=== PATIENT | male | born 1970 | race Caucasian/White ===

== ENCOUNTER 2016-03-29 21:36 | Emergency (ER) | payer MEDICAID ==
[~2016-03-29] VITALS: Ht 170.2 cm; Wt 68.2 kg
[~2016-03-29 21:36] MED LIST: LORA-441 PO
[2016-03-29 21:42] VITALS: Ht 170.2 cm; Wt 68.2 kg
--- NOTE | 2016-03-29 23:52 | ERD ---
ER Documentation Chief Complaint Date/Time DATE: 03/29/16 TIME: 23:51 Chief Complaint BIBA for chronic anxiety, does not have money for his Rx per pt. HPI There is a 46 mm Ativan was for chronic anxiety. Patient is in need of vomiting for his Rx. He denies any suicidal homicidal ideation. Patient has multiple visits. Upon reviewing medical records, patient has been multiple times in 2016. At this point is clinically stable for outpatient management. ROS All systems reviewed and are negative except as per history of present illness. Medications Home Meds Active Scripts Lorazepam* (Ativan*) 0.5 Mg Tablet, 0.5 MG PO Q8, #10 TAB Prov:TABATHA ZUNIGA 03/24/16 Discontinued Reported Medications Ibuprofen* (Ibuprofen*) 800 Mg Tab, 800 MG PO TID for HEADACHE, TAB 05/31/14 Glipizide* (Glipizide*) 5 Mg Tablet, 5 MG PO DAILY 04/27/14 Alprazolam* (Alprazolam*) 0.5 Mg Tablet, 0.5 MG PO TID 04/27/14 Lisinopril* (Lisinopril*) 10 Mg Tablet, 10 MG PO DAILY 04/27/14 Metformin* (Glucophage*) 500 Mg Tab, 500 MG PO BID 04/27/14 Discontinued Scripts Lorazepam* (Lorazepam*) 1 Mg Tablet, 1 MG PO Q8H Y for ANXIETY, #7 TAB Prov:GAYATRI COX PA-C 03/23/16 Ibuprofen* (Motrin*) 400 Mg Tab, 400 MG PO Q6H Y for PAIN AND OR ELEVATED TEMP, #30 TAB Prov:BHAVNA RAMACHANDRAN NP 03/20/16 Metoprolol Succinate* (Toprol XL*) 25 Mg Tab.sr.24h, 25 MG PO DAILY, #30 TAB Prov:OMAYRA FERRO PA-C 01/25/16 Metformin Hcl* (Metformin Hcl*) 850 Mg Tablet, 850 MG PO WITH BREAKFAST, #30 TAB Prov:OMAYRA FERRO PA-C 01/25/16 Carisoprodol* (Soma*) 350 Mg Tablet, 350 MG PO TID Y for MUSCLE SPASMS, #15 TAB Prov:OMAYRA FERRO PA-C 01/11/15 Hydrocodone Bit-Acetaminophen* ([place]*) 10-325 Mg Tablet, 1 TAB PO Q6 Y for PAIN , #7 TAB Prov:CLAUDIALeonidesOMAYRA PA-C 01/11/15 Ibuprofen* (Ibuprofen*) 800 Mg Tab, 800 MG PO Q6H Y for PAIN, #30 TAB Prov:KASIEDOLLYIsaias Elizabeth PRIETO 01/11/15 Allergies Allergies: Coded Allergies: No Known Allergy (Unverified , 03/23/16) PMhx/Soc History of Surgery: No Anesthesia Reaction: No Hx Neurological Disorder: No Hx Respiratory Disorders: No Hx Cardiac Disorders: Yes (htn) Hx Psychiatric Problems: No Hx Miscellaneous Medical Probl: Yes (dm , depression ) Hx Alcohol Use: Yes (daily ) Hx Substance Use: No Hx Tobacco Use: Yes Physical Exam Vitals Vital Signs Date Time Temp Pulse Resp B/P Pulse Ox O2 Delivery O2 Flow Rate FiO2 03/29/16 21:42 98.6 73 20 112/70 98 Physical Exam Const: [] Head: Atraumatic Eyes: Normal Conjunctiva ENT: Normal External Ears, Nose and Mouth. Neck: Full range of motion..~ No meningismus. Resp: Clear to auscultation bilaterally Cardio: Regular rate and rhythm, no murmurs Abd: Soft, non tender, non distended. Normal bowel sounds Skin: No petechiae or rashes Back: No midline or flank tenderness Ext: No cyanosis, or edema Neur: Awake and alert Psych: Normal Mood and Affect Procedures/MDM This is a patient who is at this point malingering. At this point is clinically stable. He will be offered Librium. He will be discharged home with a prescription for Librium. Follow-up with PCP. Return for worsening symptoms. No evidence of suicidal homicidal ideation. No evidence of psychosis. Departure Diagnosis: Primary Impression: Anxiety Additional Impression: Alcohol abuse Condition: Stable EMMA CORMIER Mar 29, 2016 23:52
[2016-03-29] MEDS ORDERED: CHLO25CA9 PO (23:53)
== END 2016-03-30 00:16 | disposition home or self-care (01) ==
LOC: FTE 21:36 → E/R 03-30 00:16
DX: F41.9 Anxiety disorder, unspecified (principal); I10 Essential (primary) hypertension; E11.9 Type 2 diabetes mellitus without complications; F17.210 Nicotine dependence, cigarettes, uncomplicated; F10.10 Alcohol abuse, uncomplicated; Z79.84 Long term (current) use of oral hypoglycemic drugs
CPT/HCPCS: 99283

== ENCOUNTER 2016-03-30 20:16 | Emergency (ER) | payer SELFPAY ==
[~2016-03-30] VITALS: Ht 175.3 cm; Wt 65.0 kg
[~2016-03-30 20:16] MED LIST changes: +CHLO25CA9 PO
[2016-03-30 20:31] VITALS: Ht 175.3 cm; Wt 65.0 kg
== END 2016-03-31 08:02 | disposition left against medical advice (07) ==
LOC: E/R 20:16
DX: Z53.21 Procedure and treatment not carried out due to patient leaving prior to being seen by health care provider (principal)

== ENCOUNTER 2016-04-13 22:00 | Emergency (ER) | payer MEDICAID ==
[~2016-04-13] VITALS: Ht 170.2 cm; Wt 78.0 kg
[2016-04-13 22:11] VITALS: Ht 170.2 cm; Wt 78.0 kg
[2016-04-13] MEDS ORDERED: METF500T4 PO (23:09)
[2016-04-13] MEDS ORDERED: LORA-441 PO (23:09)
[2016-04-13] MEDS ORDERED: LISI10TA2 PO (23:21)
[2016-04-13] MEDS ORDERED: METO25TA7 PO (23:21)
--- NOTE | 2016-04-13 23:25 | ERD ---
ER Documentation Chief Complaint Date/Time DATE: 04/13/16 TIME: 23:23 Chief Complaint Pt needs medication refill DM and Htn. HPI This is a 45-year-old male presents to the ER for medication refill for his diabetes, hypertension and anxiety. Patient states he is traveling tomorrow any this medication. He denies any chest pain or shortness of breath. Patient denies any suicidal ideations. ROS 12 point review of systems was done, all negative except per HPI. Medications Home Meds Active Scripts Lisinopril* (Lisinopril*) 10 Mg Tablet, 10 MG PO DAILY, #30 TAB Prov:EFRAIN,TABATHA C 04/13/16 Metoprolol Succinate* (Toprol XL*) 25 Mg Tab.sr.24h, 25 MG PO DAILY, #30 TAB Prov:TABATHA ZUNIGA 04/13/16 Lorazepam* (Ativan*) 0.5 Mg Tablet, 0.5 MG PO Q8, #10 TAB Prov:TABATHA ZUNIGA 04/13/16 Metformin* (Glucophage*) 500 Mg Tab, 500 MG PO BID for 30 Days, TAB Prov:EFRAINTABATHA C 04/13/16 Chlordiazepoxide* (Chlordiazepoxide*) 25 Mg Capsule, 25 MG PO Q8 Y for CONTROL WITHDRAWAL SYMPTOMS, #20 CAP Prov:EMMA CORMIER 03/29/16 Lorazepam* (Ativan*) 0.5 Mg Tablet, 0.5 MG PO Q8, #10 TAB Prov:TABATHA ZUNIGA En 03/24/16 Allergies Allergies: Coded Allergies: No Known Allergy (Unverified , 03/23/16) PMhx/Soc History of Surgery: No Anesthesia Reaction: No Hx Neurological Disorder: No Hx Respiratory Disorders: No Hx Cardiac Disorders: Yes (htn) Hx Psychiatric Problems: No Hx Miscellaneous Medical Probl: Yes (dm , depression ) Hx Alcohol Use: Yes (daily ) Hx Substance Use: No Hx Tobacco Use: Yes Smoking Status: Current some day smoker Physical Exam Vitals Vital Signs Date Time Temp Pulse Resp B/P Pulse Ox O2 Delivery O2 Flow Rate FiO2 04/13/16 22:11 98.5 62 18 131/95 99 Physical Exam GENERAL: The patient is well developed and appropriate for usual state of health , in no apparent distress. HEENT: Atraumatic. CHEST: Clear to auscultation bilaterally. There are no rales, wheezes or rhonchi. HEART: Regular rate and rhythm. No murmurs, clicks, rubs or gallops. NEURO: Alert and oriented. Procedures/MDM This is a 45-year-old male presents to the ER for medication refill. At this time patient is completely asymptomatic. Patient denies any blurry vision and stated on triage form. Patient will be sent home with metformin, lisinopril, lorazepam. Patient's vital signs are all normal. He is stable for outpatient follow-up. Patient is to follow-up with his primary care doctor within 1-2 days or return to ER sooner symptoms worsen. Medical decision making was shared with the patient she understands and agrees with plan. Departure Diagnosis: Primary Impression: Encounter for medication refill Condition: Stable Patient Instructions: Taking Medicine Safely Additional Instructions: Call your primary care doctor TOMORROW for an appointment during the next 1-2 days.See the doctor sooner or return here if your condition worsens before your appointment time. TABATHA ZUNIGA Apr 13, 2016 23:25
== END 2016-04-14 | disposition home or self-care (01) ==
LOC: FTE 22:00
DX: Z76.0 Encounter for issue of repeat prescription (principal); E11.9 Type 2 diabetes mellitus without complications; I10 Essential (primary) hypertension; F17.210 Nicotine dependence, cigarettes, uncomplicated; Z79.84 Long term (current) use of oral hypoglycemic drugs
CPT/HCPCS: 99281